=== PATIENT | female | born 1945 | race Caucasian/White ===

== ENCOUNTER 2017-02-12 08:50 | Day surgery (SDC) | payer MEDICARE, OTHER ==
[~2017-02-12 08:50] MED LIST: Lactated Ringers 1,000 ML IV SCH; Sodium Chloride 0.9% 10 ML Syringe FLUSH PRN
--- NOTE | 2017-02-12 11:14 | PCM.HPR ---
H & P Addendum review - H & P Addendum Review Date of Original H & P: 02/03/17 Date Reviewed: 02/12/17 Time Reviewed: 11:13 Patient was examined: No Changes (Ok to proceed with EGD and Colonoscopy)
[2017-02-12] MEDS ORDERED: Propofol 200 MG/20 ML SDV ONE ×3 (11:18→11:20)
[2017-02-12] MEDS ORDERED: Midazolam 1 MG/ML 2 ML SDV ONE ×2 (11:18→11:20)
[2017-02-12] MEDS ORDERED: fentaNYL 100 MCG/2 ML SDV ONE ×2 (11:18→11:20)
--- NOTE | 2017-02-12 11:42 | PCM.OPNOTE ---
- General Post-Op/Procedure Note Date of Surgery/Procedure: 02/12/17 Operative Procedure(s): EGD. Colonoscopy Findings: Normal EGD Sig tics Pre Op Diagnosis: GERD; FH Colon Ca Post-Op Diagnosis: Same Anesthesia Technique: MAC Primary Surgeon: Warren Rodriguez Anesthesia Provider: Tammie Gale Complications: None Condition: Good
[2017-02-12 14:25] VITALS: BP 119/79
--- NOTE | 2017-02-13 08:42 | OR ---
Date of Procedure: 02/12/2017 PREOPERATIVE DIAGNOSES: 1. Gastroesophageal reflux disease with history of peptic ulcer disease. 2. Family history of colon cancer. POSTOPERATIVE DIAGNOSES: 1. Normal EGD. 2. sigmoid diverticulosis. PROCEDURES: 1. EGD. 2. Colonoscopy. ANESTHESIA: IV sedation. PROCEDURE IN DETAIL: Patient was brought to the procedure room, where she was placed on her left side after anesthetic gargle was given and IV sedation administered. Oral bite block was placed and the upper endoscope advanced into the esophagus under direct vision without difficulty. Scope was advanced to the 3rd portion of the duodenum. The duodenal and pylorus were normal. Antrum and body of the stomach were normal. Retroflexion revealed a normal-appearing fundus. There was no hiatal hernia. Squamocolumnar junction appears normal. Air was removed from the stomach and the scope withdrawn through the remaining esophagus, which appears normal. Patient tolerated this portion of the procedure well. Next, colonoscopy was performed after digital rectal exam was performed which was normal. Colonoscope was inserted and advanced to the level of the cecum without difficulty. Cecal position was confirmed by identifying the appendiceal lumen and ileocecal valve. Prep was good and surfaces were well visualized. Upon withdrawing the scope, the ascending, transverse, and descending colon were normal. Sigmoid colon had several diverticula present. Rectum was normal and retroflexion was normal. Air was removed and the scope withdrawn. Patient tolerated the procedure well and returned to recovery in stable condition. Recommend routine colon screening in 5 years . MISHA GUZMAN MD /[id number]
== END 2017-02-12 14:02 | disposition home or self-care (01) ==
LOC: LL.SDS 08:50
PROVIDERS: ATTEND Surgery
DX: K21.9 Gastro-esophageal reflux disease without esophagitis (principal); Z12.11 Encounter for screening for malignant neoplasm of colon; Z80.0 Family history of malignant neoplasm of digestive organs; K57.30 Diverticulosis of large intestine without perforation or abscess without bleeding; I10 Essential (primary) hypertension; Z88.2 Allergy status to sulfonamides; E78.00 Pure hypercholesterolemia, unspecified; E03.9 Hypothyroidism, unspecified; Z79.899 Other long term (current) drug therapy; Z90.49 Acquired absence of other specified parts of digestive tract; Z98.890 Other specified postprocedural states; Z90.710 Acquired absence of both cervix and uterus; Z98.51 Tubal ligation status; Z78.9 Other specified health status
CPT/HCPCS: 00740; 43235; G0105; J2250; J2704; J3010; J7120